=== PATIENT | female | born 1935 | race Caucasian/White ===

== ENCOUNTER 2018-06-14 12:18 | Observation (INO) ==
--- NOTE | 2018-06-14 13:27 | Emergency Department Note ---
Disposition Clinical Impression: UTI (urinary tract infection), Altered mental status Disposition: Admitted As Inpatient Condition: Fair Referrals: Chava Robles DO [Primary Care Provider] - Forms: ED Satisfaction Letter, Work/School Release Time of Disposition: 16:14 (Ramiro BUENO) Altered Mental Status HPI - General Chief Complaint: ED General Medical Stated Complaint: I feel sick Time Seen by Provider: 06/14/18 12:25 Source: patient Mode of arrival: ambulatory Limitations: no limitations Nursing Notes Reviewed: Yes Vital Signs Reviewed: Yes - History of Present Illness HPI Narrative: 82-year-old female who presents emergency room he just doesn't feel well patient states that I really can't describe she has again vomiting diarrhea I hurt all over had an episode of chest pain but denies any off congestion runny nose urgency stinging denies rashes or lesions family is with her states that she's had a little bit of confusion she says not acting herself she appears to have marked amount of weakness is noted times have some confusion where she just isn't sure what to do but she seems to know where she is Day and time he was brought to the ER for evaluation family is concerned she has a UTI she's had this in the past MD complaint: confusion, weakness Onset (ago): day(s) (1) Timing confirmed by: family member Pain Severity: mild Pain Scale: 2 Consistency of Symptoms: waxing and waning Associated symptoms: Reports: fever, loss of appetite, malaise, nausea/vomiting , weakness, other (Diarrhea). Denies: chest pain, cough, diaphoresis, chills, headaches, rash, seizure, shortness of breath, syncope, foul smelling urine, difficulty walking, diarrhea, incontinence - Related Data Home Medications Medication Instructions Recorded Confirmed Amlodipine [Norvasc] 10 mg PO DAILY 10/29/15 06/14/18 Ascorbic Acid [Vitamin C] 250 mg PO DAILY 10/29/15 06/14/18 Atenolol [Tenormin] 100 mg PO DAILY 10/29/15 06/14/18 Atorvastatin Calcium [Lipitor] 80 mg PO DAILY 10/29/15 06/14/18 Diazepam [Valium] 5 mg PO TID PRN 10/29/15 06/14/18 Gabapentin [Neurontin] 300 mg PO TID 10/29/15 06/14/18 Losartan/Hydrochlorothiazide 1 each PO DAILY 10/29/15 06/14/18 [Hyzaar 100-25 Tablet] Omeprazole [PriLOSEC] 20 mg PO DAILY 10/29/15 06/14/18 OxyCODONE/APAP 10/325 [Percocet 0.5 each PO Q6HR PRN 10/29/15 06/14/18 10/325] Spironolactone [Aldactone] 50 mg PO DAILY 10/29/15 06/14/18 Furosemide [Lasix] 20 mg PO DAILY PRN 04/20/18 06/14/18 Allergies Allergy/AdvReac Type Severity Reaction Status Date / Time duloxetine [From Cymbalta] AdvReac Confusion Verified 06/14/18 12:18 escitalopram [From Lexapro] AdvReac Hallucinati Verified 06/14/18 12:18 ng sertraline [From Zoloft] AdvReac Confusion Verified 06/14/18 12:18 All systems ED: reviewed and negative except as stated. Review of Systems: As Per HPI Constitutional: Reports: fever, weakness. Denies: chills, weight change Eyes: Denies: eye pain, eye discharge, vision change ENT ED: Denies: ear pain, throat pain, dental pain Cardiovascular: Denies: chest pain, palpitations Respiratory: Denies: cough, dyspnea, wheezes Gastrointestinal: Denies: abdominal pain, nausea, vomiting Genitourinary: Denies: urgency, dysuria, frequency Musculoskeletal: Denies: back pain Integumentary: Denies: rash, abrasion Neurological: Denies: headache, weakness Psychiatric: Denies: anxiety, depression Endocrine: Denies: fatigue, heat or cold intolerance Hematological/Lymphatic: Denies: easy bleeding Allergic/Immunologic: Denies: facial swelling Past Medical History - Past Medical History Attestation: Yes The following information was validated with the patient. Source: patient, old records reviewed, nursing notes reviewed Medical history: Reports: arthritis, diabetes, hyperlipidemia, hypertension, TIA , other Surgical history: Reports: cholecystectomy, hysterectomy, knee replacement Psychiatric history: Reports: anxiety, depression PHARMACY TECHNICIAN history: Reports: no PHARMACY TECHNICIAN history - Social History Smoking Status: Never smoker Smokeless Tobacco Status: No Alcohol use: Reports: none Drug use: Reports: none Physical Exam - General Limitations: no limitations General appearance: alert, in no apparent distress, other (Frail elderly female) - Head Head exam: atraumatic, normocephalic, normal inspection - Eye Eye exam: Present: normal appearance, PERRL, EOMI - ENT ENT exam: normal exam, normal oropharynx, mucous membranes moist, TM's normal bilaterally, normal external ear exam - Neck Neck exam: Present: normal inspection, full ROM, trachea midline - Chest Chest inspection: Present: normal inspection, symmetric chest wall rise - Respiratory Respiratory exam: Present: normal lung sounds bilaterally - Cardiovascular Cardiovascular exam: Present: regular rate, normal rhythm, normal heart sounds - Abdominal Exam Abdominal exam: Present: soft, Non-Tender, normal bowel sounds. Absent: mass, pulsatile mass - Extremities Exam Extremities exam: Present: normal inspection, full ROM, normal capillary refill. Absent: tenderness, pedal edema, joint swelling, calf tenderness - Expanded Upper Extremity Exam Shoulder exam: Present: normal inspection, full ROM Arm exam: Present: normal inspection, full ROM Elbow exam: Present: normal inspection, full ROM Forearm/Wrist exam: Present: normal inspection, full ROM Hand exam: Present: normal inspection, full ROM Vascular exam: Normal: capillary refill, radial pulse - Expanded Lower Extremity Exam Hip/Pelvis exam: Present: normal inspection, full ROM Upper leg exam: Present: normal inspection, full ROM Knee exam: Present: normal inspection, full ROM Lower leg exam: Present: normal inspection, full ROM Ankle exam: Present: normal inspection, full ROM Foot/toe exam: Present: normal inspection, full ROM Neurovascular/Tendon exam: Present: normal capillary refill, normal fine/light touch. Absent: motor deficit, sensory deficit, tendon deficit Gait: observed and normal - Back Exam Back exam: Present: normal inspection, full ROM. Absent: muscle spasm - Neurological Exam Neurological exam: Present: alert, oriented X3, CN II-XII intact, normal gait - Psychiatric Psychiatric exam: Present: normal affect, normal mood - Skin Skin exam: Present: warm, dry, intact, normal color Course Course Narrative: she was seen and examined is related was done it was noted that she has troponin 0.05 patient though has had gastroenteritis-type symptoms will have serial enzymes done we'll start her on antibiotics and admitted for observation transferred to [facility] her EKG at this time did not show any evidence of an acute CT to Dr. Rubio and he agreed Vital Signs Temperature 98.3 F 06/14/18 12:21 Pulse Rate 101 06/14/18 12:21 Respiratory Rate 18 06/14/18 12:21 Blood Pressure 141/79 06/14/18 12:21 O2 Sat by Pulse Oximetry 92 06/14/18 12:21 Temperature 98.3 F 06/14/18 12:21 Pulse Rate 91 06/14/18 14:50 Respiratory Rate 18 06/14/18 14:50 Blood Pressure 171/89 06/14/18 14:50 O2 Sat by Pulse Oximetry 99 06/14/18 14:50 Oxygen Delivery Oxygen Delivery Room Air Altered Mental Status - Differential Diagnosis Likely: altered mental status, sepsis - Medical Records Medical records reviewed: Yes I reviewed the patient's medical records. - Lab Data Lab results reviewed: Yes I reviewed the patient's lab results. Result diagrams: 06/14/18 13:35 06/14/18 13:35 Lab Results 06/14/18 06/14/18 06/14/18 Range/Units 13:35 13:35 13:35 WBC 6.2 (4.3-11.1) K/mcL RBC 3.36 L (3.82-4.97) M/mcL Hgb 11.0 L (11.5-15.4) g/dL Hct 34.6 L (35.3-44.9) % MCV 103.0 H (83.0-100.0) fL MCH 32.7 (28.0-33.3) pg MCHC 31.8 (31.6-35.5) g/dL RDW 13.0 (11.5-14.5) % Plt Count 180 (140-400) K/mcL MPV 10.3 (9.4-12.4) fL Immature Gran % 0.5 (0-4) % Seg Neutrophils % 77.4 % Lymphocytes % 13.3 % Monocytes % 8.3 % Eosinophils % 0.2 % Basophils % 0.3 % Neutrophils # 4.8 (1.6-8.9) K/mcL Lymphocytes # 0.8 (0.6-4.6) K/mcL Monocytes # 0.5 (0.0-1.3) K/mcL Eosinophils # 0.0 (0.0-0.6) K/mcL Basophils # 0.0 (0.0-0.2) K/mcL PT 10.9 (9.4-12.1) Seconds INR 1.0 APTT 30.9 (26.0-36.0) Seconds Sodium 140 (136-145) mEq/L Potassium 4.9 (3.5-5.1) mEq/L Chloride 106 (98-107) mEq/L Carbon Dioxide 26 (23-29) mEq/L BUN 40 H (8-23) mg/dL Creatinine 1.31 H (0.60-1.20) mg/dL Est GFR ( Amer) 47 L (> 60) Est GFR (Non-Af Amer) 39 L (> 60) BUN/Creatinine Ratio 31 H (6-26) Glucose 109 H (70-105) mg/dL Calculated Osmolality 300 (280-300) Calcium 9.8 (8.6-10.3) mg/dL Total Bilirubin 0.6 (0.3-1.0) mg/dL AST 14 (13-39) Units/L ALT 11 (7-52) Units/L Alkaline Phosphatase 51 (34-104) Units/L Troponin I < 0.03 (< 0.04) ng/mL Serum Total Protein 6.8 (6.4-8.9) g/dL Albumin 3.6 (3.5-5.7) g/dL Globulin 3.2 (2.4-3.5) g/dL Albumin/Globulin Ratio 1.1 (1.1-2.2) TSH 0.285 L (0.340-5.600) mcIU/mL Urine Color (Yellow) Urine Clarity (Clear) Urine pH (5.0-8.0) pH Units Ur Specific [place] (1.010-1.025) Urine Protein (Neg-Trace) mg/dL Urine Glucose (UA) (Normal) mg/dL Urine Ketones (Negative) mg/dL Urine Blood (Negative) Urine Nitrite (Negative) Urine Bilirubin (Negative) Urine Urobilinogen (Normal) mg/dL Ur Leukocyte Esterase (Negative) Urine Microscopic RBC (0-3) per hpf Urine Microscopic WBC (0-3) per hpf Ur Squamous Epith Cells (None-Few) per lpf Urine Bacteria (None-Few) per hpf Ur Culture Indicated? (NO) 06/14/18 Range/Units 15:06 WBC (4.3-11.1) K/mcL RBC (3.82-4.97) M/mcL Hgb (11.5-15.4) g/dL Hct (35.3-44.9) % MCV (83.0-100.0) fL MCH (28.0-33.3) pg MCHC (31.6-35.5) g/dL RDW (11.5-14.5) % Plt Count (140-400) K/mcL MPV (9.4-12.4) fL Immature Gran % (0-4) % Seg Neutrophils % % Lymphocytes % % Monocytes % % Eosinophils % % Basophils % % Neutrophils # (1.6-8.9) K/mcL Lymphocytes # (0.6-4.6) K/mcL Monocytes # (0.0-1.3) K/mcL Eosinophils # (0.0-0.6) K/mcL Basophils # (0.0-0.2) K/mcL PT (9.4-12.1) Seconds INR APTT (26.0-36.0) Seconds Sodium (136-145) mEq/L Potassium (3.5-5.1) mEq/L Chloride (98-107) mEq/L Carbon Dioxide (23-29) mEq/L BUN (8-23) mg/dL Creatinine (0.60-1.20) mg/dL Est GFR ( Amer) (> 60) Est GFR (Non-Af Amer) (> 60) BUN/Creatinine Ratio (6-26) Glucose (70-105) mg/dL Calculated Osmolality (280-300) Calcium (8.6-10.3) mg/dL Total Bilirubin (0.3-1.0) mg/dL AST (13-39) Units/L ALT (7-52) Units/L Alkaline Phosphatase (34-104) Units/L Troponin I (< 0.04) ng/mL Serum Total Protein (6.4-8.9) g/dL Albumin (3.5-5.7) g/dL Globulin (2.4-3.5) g/dL Albumin/Globulin Ratio (1.1-2.2) TSH (0.340-5.600) mcIU/mL Urine Color Yellow (Yellow) Urine Clarity Clear (Clear) Urine pH 5.5 (5.0-8.0) pH Units Ur Specific [place] 1.010 (1.010-1.025) Urine Protein Negative (Neg-Trace) mg/dL Urine Glucose (UA) Normal (Normal) mg/dL Urine Ketones Negative (Negative) mg/dL Urine Blood Negative (Negative) Urine Nitrite Negative (Negative) Urine Bilirubin Negative (Negative) Urine Urobilinogen Normal (Normal) mg/dL Ur Leukocyte Esterase Moderate H (Negative) Urine Microscopic RBC 3-5 H (0-3) per hpf Urine Microscopic WBC 5-15 H (0-3) per hpf Ur Squamous Epith Cells Few (None-Few) per lpf Urine Bacteria Moderate H (None-Few) per hpf Ur Culture Indicated? YES A (NO) - Radiology Data Radiology results reviewed: Yes I reviewed the patient's radiology results. ITS Impressions Chest X-Ray 06/14/18 13:02 IMPRESSION: 1. No active pulmonary disease. 2. Stable cardiomegaly without overt failure. D/ / Fox Chao MD / Fox Chao MD Interpreting Provider: Fox Chao MD - EKG Data EKG attestation: Yes I reviewed and interpreted this EKG. EKG results narrative: Supraventricular rhythm intradural hypertrophy and ST changes nonspecific TPA Checklist - LKW: 3-4.5 hrs Add. Warnings/Precautions Patient/family understanding: The patient/family members have been counseled and understood the risk, benefit , and alternatives of treatment. Critical Care Time Critical Care Time: No
[2018-06-14 13:41] LABS: Basophils % 0.3 %; Eosinophils % 0.2 %; Hematocrit 34.6 % (35.3-44.9); Immature Granulocytes % 0.5 % (0-4); Lymphocytes # 0.8 K/mcL (0.6-4.6); Lymphocytes % 13.3 %; Mean Corpuscular HGB Conc 31.8 g/dL (31.6-35.5); Mean Corpuscular Hemoglobin 32.7 pg (28.0-33.3); Mean Platelet Volume 10.3 fL (9.4-12.4); Monocytes # 0.5 K/mcL (0.0-1.3); Monocytes % 8.3 %; Neutrophils # 4.8 K/mcL (1.6-8.9); Platelet Count 180 K/mcL (140-400); Red Blood Count 3.36 M/mcL (3.82-4.97); Segmented Neutrophils % 77.4 %
[2018-06-14 13:54] LABS: Prothrombin Time 10.9 Seconds (9.4-12.1)
[2018-06-14 13:56] LABS: Activated Partial Thrombo Time 30.9 Seconds (26.0-36.0)
[2018-06-14 14:04] LABS: Alanine Aminotransferase 11 Units/L (7-52); Albumin 3.6 g/dL (3.5-5.7); Albumin/Globulin Ratio 1.1 (1.1-2.2); Alkaline Phosphatase 51 Units/L (34-104); Aspartate Amino Transferase 14 Units/L (13-39); BUN/Creatinine Ratio 31 (6-26); Bilirubin,Total 0.6 mg/dL (0.3-1.0); Blood Urea Nitrogen 40 mg/dL (8-23); Calcium 9.8 mg/dL (8.6-10.3); Carbon Dioxide 26 mEq/L (23-29); Chloride 106 mEq/L (98-107); Globulin 3.2 g/dL (2.4-3.5); Glucose 109 mg/dL (70-105); Osmolality,Calculated 300 (280-300); Potassium 4.9 mEq/L (3.5-5.1); Sodium 140 mEq/L (136-145); Total Protein 6.8 g/dL (6.4-8.9); eGFR For African Americans 47 (> 60); eGFR For Non-African Americans 39 (> 60)
[2018-06-14 14:05] LABS: Troponin I < 0.03 ng/mL (< 0.04)
[2018-06-14 14:18] LABS: Thyroid Stimulating Hormone 0.285 mcIU/mL (0.340-5.600)
[2018-06-14 15:10] LABS: Bilirubin,Urine Negative (Negative); Blood,Urine Negative (Negative); Clarity,Urine Clear (Clear); Color,Urine Yellow (Yellow); Glucose,Urine (UA) Normal (Normal); Ketones,Urine Negative (Negative); Leukocyte Esterase,Urine Moderate (Negative); Nitrite,Urine Negative (Negative); PH,Urine 5.5 pH Units (5.0-8.0); Protein,Urine Negative (Neg-Trace); Urobilinogen,Urine Normal (Normal)
[2018-06-14 15:16] LABS: Squamous Epithelial Cell,Urine Few per lpf (None-Few)
[2018-06-14 15:17] LABS: Bacteria,Urine Moderate per hpf (None-Few)
[2018-06-14] MEDS ORDERED: diazePAM 5 MG TABLET PO PRN (16:53)
[2018-06-14] MEDS ORDERED: *HR* OxyCODONE/APAP 10/325 TABLET PO PRN (16:53)
[2018-06-14] MEDS ORDERED: Naloxone 0.4 MG/ML INJ IVP PRN (16:53)
[2018-06-14] MEDS ORDERED: Furosemide 20 MG TABLET PO PRN (16:53)
[2018-06-14] MEDS: 0.9 % Sodium Chloride 1,000 ML IVC SCH (17:57)
[2018-06-14] MEDS: Gabapentin 300 MG CAPSULE PO SCH (20:57)
[2018-06-15 01:11] LABS: Hematocrit 32.2 % (35.3-44.9); Hemoglobin 10.1 g/dL (11.5-15.4); Mean Corpuscular HGB Conc 31.4 g/dL (31.6-35.5); Mean Corpuscular Hemoglobin 32.4 pg (28.0-33.3); Mean Corpuscular Volume 103.2 fL (83.0-100.0); Mean Platelet Volume 10.5 fL (9.4-12.4); Platelet Count 171 K/mcL (140-400); Red Blood Count 3.12 M/mcL (3.82-4.97); Red Cell Distribution Width 13.1 % (11.5-14.5); Segmented Neutrophils % 56.9 %
[2018-06-15 01:12] LABS: Basophils % 0.8 %; Eosinophils # 0.1 K/mcL (0.0-0.6); Immature Granulocytes % 0.4 % (0-4); Lymphocytes # 1.6 K/mcL (0.6-4.6); Lymphocytes % 30.5 %; Monocytes # 0.5 K/mcL (0.0-1.3); Monocytes % 10.4 %
[2018-06-15 01:23] LABS: Activated Partial Thrombo Time 28.9 Seconds (26.0-36.0)
[2018-06-15] MEDS: 0.9 % Sodium Chloride 1,000 ML IVC SCH (01:41)
[2018-06-15 01:51] LABS: Calcium 9.1 mg/dL (8.6-10.3); Potassium 4.1 mEq/L (3.5-5.1)
[2018-06-15] MEDS: Gabapentin 300 MG CAPSULE PO SCH ×2 (08:35→16:04)
[2018-06-15] MEDS ORDERED: Spironolactone 25 MG TABLET PO SCH (09:00)
[2018-06-15] MEDS ORDERED: amLODIPine 5 MG TABLET PO SCH (09:00)
[2018-06-15] MEDS ORDERED: Ascorbic Acid 500 MG TABLET PO SCH (09:00)
[2018-06-15] MEDS ORDERED: Losartan/HCTZ 50-12.5 TABLET PO SCH (09:00)
[2018-06-15 14:14] LABS: Bilirubin,Urine Negative (Negative); Blood,Urine Negative (Negative); Clarity,Urine Clear (Clear); Color,Urine Yellow (Yellow); Glucose,Urine (UA) Normal (Normal); Ketones,Urine Negative (Negative); Leukocyte Esterase,Urine Negative (Negative); Nitrite,Urine Negative (Negative); PH,Urine 5.5 pH Units (5.0-8.0); Protein,Urine Negative (Neg-Trace); Urobilinogen,Urine Normal (Normal)
[2018-06-15 15:39] VITALS: BP 113/55
--- NOTE | 2018-06-15 15:55 | Internal Med History&Physical ---
Date of Encounter: 06/15/18 Time of Encounter: 15:45 Assessment and Plan (1) Altered mental status Current visit: Yes Status: Acute Patient was confused when she first came in and now she is alert and oriented 3 , Qualifiers: Altered mental status type: unspecified Qualified Code(s): R41.82 - Altered mental status, unspecified (2) UTI (urinary tract infection) Current visit: Yes Status: Acute Patient denies any pain with urination she was given 1 g of Rocephin and her UA follow-up came back normal Qualifiers: Urinary tract infection type: site unspecified Hematuria presence: without hematuria Qualified Code(s): N39.0 - Urinary tract infection, site not specified (3) EDDIE (acute kidney injury) Current visit: Yes Status: Acute Creatinine was elevated but improved after IV fluids (4) Left sided sciatica Current visit: Yes Status: Chronic Reported stable on the Neurontin as a controller medicine management discussion about controlled medicines (5) MAIDA (generalized anxiety disorder) Current visit: Yes Status: Chronic (6) DM type 2 (diabetes mellitus, type 2) Current visit: Yes Status: Chronic Continue proper diet Qualifiers: Diabetes mellitus terminal operator insulin use: unspecified care home insulin use status Diabetes mellitus complication status: with unspecified complications Qualified Code(s): E11.8 - Type 2 diabetes mellitus with unspecified complications (7) Hyperlipidemia Current visit: Yes Status: Chronic Proper diet and atorvastatin Qualifiers: Hyperlipidemia type: mixed hyperlipidemia Qualified Code(s): E78.2 - Mixed hyperlipidemia (8) GERD (gastroesophageal reflux disease) Current visit: Yes Status: Chronic Continue omeprazole Qualifiers: Esophagitis presence: without esophagitis Qualified Code(s): K21.9 - Gastro -esophageal reflux disease without esophagitis (9) Chronic lower back pain Current visit: Yes Status: Chronic Continue her Percocet as before follow-up with Dr. Robles and Dr. Oconnor Qualifiers: Back pain laterality: midline Sciatica presence: with sciatica Sciatica laterality: sciatica of left side Qualified Code(s): M54.42 - Lumbago with sciatica, left side; G89.29 - Other chronic pain Internal Medicine - H&P: HPI Chief complaint: Shortness of breath Admitted From: Home Plans for Post Hospital Care: Home History of present illness: Ms. Chaidez is a 82 year old female presents to emergency room not feeling well, having shortness breath, diarrhea without blood, chest discomfort. Dr. Elina Benitez admitted her with a urinary tract infection and change in mental status. He was given 1 dose of IV Rocephin for a urinalysis that she was positive for leukocyte esterase. Repeat UA today is negative so the Rocephin cleared the urinary tract infection. She had acute kidney injury with her creatinine 1.30 and after the IV fluids cramping came down 1.10. She reports feeling back to her baseline and felt able to go home. She is a walker at home. She reports having children living in the area he could stay with her or she could sit the house. She mentioned wanting to switch to me from Dr. Robles because she initially 1 follow-up with me but a son suggested Dr. Robles. as a hospitalist I need to send her back to her primary care provider. In the future if she decides to switch she can call my office about new patient visit. She mentioned about having lower back pain was not is on narcotics is wondering if I could continue those. I told her it depends on what I find when I research her situation and with Dr. Oconnor said. So I cannot guarantee that I can give it to her. She reports feeling back to normal no chest pain or shortness of breath feels stable enough with her walker. 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 When used routiely, it interferes with deep sleep, so the reserve energy isn't being replaced effectively which leads to tiredness, depression, higher risk of infection. I recommend patients gives up daily use.) Occupational status: retired Current living situation: Home - Independent Activity Level: Uses cane/walker - Family History Mother Living Status: (Cancer unsure what kind) Hx Family Cancer: Yes Hx Family Endocrine Disorder: Yes (DIABETES) Father Living Status: (Diabetic coma) Hx Family Endocrine Disorder: Yes (DIABETES) Internal Medicine - H&P: Meds Amlodipine [Norvasc] 10 mg PO DAILY 10/29/15 [History] Ascorbic Acid [Vitamin C] 250 mg PO DAILY 10/29/15 [History] Atenolol [Tenormin] 100 mg PO DAILY 10/29/15 [History] Atorvastatin Calcium [Lipitor] 80 mg PO DAILY 10/29/15 [History] Diazepam [Valium] 5 mg PO TID PRN 10/29/15 [History] Gabapentin [Neurontin] 300 mg PO TID 10/29/15 [History] Losartan/Hydrochlorothiazide [Hyzaar 100-25 Tablet] 1 each PO DAILY 10/29/15 [ History] Omeprazole [PriLOSEC] 20 mg PO DAILY 10/29/15 [History] OxyCODONE/APAP 10/325 [Percocet 10/325] 0.5 each PO Q6HR PRN 10/29/15 [History] Spironolactone [Aldactone] 50 mg PO DAILY 10/29/15 [History] Furosemide [Lasix] 20 mg PO DAILY PRN 04/20/18 [History] 3 Allergy/AdvReac Type Severity Reaction Status Date / Time duloxetine [From Cymbalta] AdvReac Confusion Verified 06/14/18 12:18 escitalopram [From Lexapro] AdvReac Hallucinati Verified 06/14/18 12:18 ng sertraline [From Zoloft] AdvReac Confusion Verified 06/14/18 12:18 All Systems PM: A 10-system review of systems was performed and is negative for pertinent findings except as documented above in the HPI. - Constitutional Vitals: Temp Pulse Resp BP Pulse Ox 98 F 64 15 113/55 97 06/15/18 15:00 06/15/18 15:00 06/15/18 15:00 06/15/18 15:00 06/15/18 15:00 General appearance: Present: A&O X 3, no acute distress, answers questions appropriately (Hard of hearing) - Head Head exam: Present: atraumatic, normocephalic - Eye Eye exam: Present: PERRL, conjuntiva pink, sclera anicteric Pupils: Present: PERRL - Neck Neck exam general surgery: Present: supple, trachea midline. Absent: lymphadenopathy - Respiratory Respiratory exam: Present: CTAB. Absent: accessory muscle use, rales, rhonchi, wheezes - Cardiovascular Cardiovascular exam: Present: RRR, +S1, +S2. Absent: diastolic murmur, gallop, rubs, systolic murmur - GI/Abdominal GI/Abdominal exam: Present: normal bowel sounds, soft, no peritoneal signs. Absent: distended, tenderness - Extremities Exam Extremities exam: Present: warm. Absent: calf tenderness, cyanotic, pedal edema - Neurological Exam Neurological exam: Present: CN II-XII intact, oriented X3, no focal deficits. Absent: facial droop, speech deficit - Skin Skin exam: Present: dry, intact Internal Med - H&P Results - Labs CBC & Chem 7: 06/15/18 00:52 06/15/18 00:52 Labs: Short CBC 06/15/18 Range/Units 00:52 WBC 5.2 (4.3-11.1) K/mcL Hgb 10.1 L (11.5-15.4) g/dL Hct 32.2 L (35.3-44.9) % Plt Count 171 (140-400) K/mcL Neutrophils # 3.0 (1.6-8.9) K/mcL BMP 06/15/18 00:52 Sodium 142 Potassium 4.1 Chloride 109 H Carbon Dioxide 26 BUN 35 H Creatinine 1.10 Glucose 77 Calcium 9.1 Cardiac Enzymes 06/14/18 06/15/18 Range/Units 18:32 00:52 Troponin I < 0.03 0.03 (< 0.04) ng/mL Urine 06/15/18 Range/Units 14:05 Urine Color Yellow (Yellow) Urine Clarity Clear (Clear) Urine pH 5.5 (5.0-8.0) pH Units Ur Specific [place] 1.020 (1.010-1.025) Urine Protein Negative (Neg-Trace) mg/dL Urine Glucose (UA) Normal (Normal) mg/dL
--- NOTE | 2018-06-15 16:19 | Discharge Summary ---
- NOTES TO OUTPATIENT PROVIDER Notes to Outpatient Provider: Yanelis asked about switching to me. As a hospitalist, referred her back here for follow-up. 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 (5) MAIDA (generalized anxiety disorder) Priority: Secondary Status: Chronic Comments: Stable (6) DM type 2 (diabetes mellitus, type 2) Priority: Secondary Status: Chronic Comments: Stable Qualifiers: Diabetes mellitus manager intermediate insulin use: unspecified manager intermediate insulin use status Diabetes mellitus complication status: with unspecified complications Qualified Code(s): E11.8 - Type 2 diabetes mellitus with unspecified complications (7) Hyperlipidemia Priority: Secondary Status: Chronic Comments: Stable Qualifiers: Hyperlipidemia type: mixed hyperlipidemia Qualified Code(s): E78.2 - Mixed hyperlipidemia (8) GERD (gastroesophageal reflux disease) Priority: Secondary Status: Chronic Comments: Stable Qualifiers: Esophagitis presence: without esophagitis Qualified Code(s): K21.9 - Gastro -esophageal reflux disease without esophagitis (9) Chronic lower back pain Priority: Secondary Status: Chronic Comments: Stable Qualifiers: Back pain laterality: midline Sciatica presence: with sciatica Sciatica laterality: sciatica of left side Qualified Code(s): M54.42 - Lumbago with sciatica, left side; G89.29 - Other chronic pain Hospital course: Ms. Chaidez is a 82 year old female was admitted to the hospital with changes no status from urinary tract infection. She had acute kidney injury in addition that improved with IV fluids. Mental status improved after Rocephin shot helped urinary tract infection. A repeat UA came back normal she felt back to baseline and ready to go home. She denies any chest pain or shortness of breath or other concerns. He felt that she had family members available to stay with her or she can state her house. She does not feel like she needed home health. Answer questions needs follow-up with Dr. Robles. Discharge discussed with: patient - Time Spent with Patient Total time spent providing and/or coordinating discharge services: Greater than 30 minutes - Discharge Medications Home Medications: Amlodipine [Norvasc] 10 mg PO DAILY 10/29/15 [History] Ascorbic Acid [Vitamin C] 250 mg PO DAILY 10/29/15 [History] Atenolol [Tenormin] 100 mg PO DAILY 10/29/15 [History] Atorvastatin Calcium [Lipitor] 80 mg PO DAILY 10/29/15 [History] Diazepam [Valium] 5 mg PO TID PRN 10/29/15 [History] Gabapentin [Neurontin] 300 mg PO TID 10/29/15 [History] Losartan/Hydrochlorothiazide [Hyzaar 100-25 Tablet] 1 each PO DAILY 10/29/15 [ History] Omeprazole [PriLOSEC] 20 mg PO DAILY 10/29/15 [History] OxyCODONE/APAP 10/325 [Percocet 10/325] 0.5 each PO Q6HR PRN 10/29/15 [History] Spironolactone [Aldactone] 50 mg PO DAILY 10/29/15 [History] Furosemide [Lasix] 20 mg PO DAILY PRN 04/20/18 [History] Allergies/Adverse Reactions: 3 Allergy/AdvReac Type Severity Reaction Status Date / Time duloxetine [From Cymbalta] AdvReac Confusion Verified 06/14/18 12:18 escitalopram [From Lexapro] AdvReac Hallucinati Verified 06/14/18 12:18 ng sertraline [From Zoloft] AdvReac Confusion Verified 06/14/18 12:18 Date of admission: 06/14/18 16:21 Primary care physician: Chava Robles, DO Discharging clinician: Krzysztof Rubio Anticipated date of discharge: 06/15/18 - Constitutional Vitals: Temp Pulse Resp BP Pulse Ox 98 F 64 15 113/55 97 06/15/18 15:00 06/15/18 15:00 06/15/18 15:00 06/15/18 15:00 06/15/18 15:00 General appearance: Present: A&O X 3, no acute distress, answers questions appropriately (Hard of hearing) Exam: General: Alert and oriented, no acute distress Lungs: Clear to auscultation bilaterally without wheezing or crackles Heart: Regular rate and rythms without murmer or rubs Abdomen: Soft, nontender, Extremities: no edema, redness - Patient Status Disposition: Home, Self-Care Condition: Fair Functional capacity at discharge: uses cane/walker Overall status at discharge: patient is back to baseline - Discharge Instructions Follow Up With: Chava Robles DO [Primary Care Provider] - 1 week - Diet and Activity Activity: ambulate only with your walker, increase activity as tolerated Diet: diabetic diet
--- NOTE | 2018-06-17 18:01 | Electrocardiograph Report ---
[address] [address] Test Date: 2018-06-14 Pat Name: Yanelis Chaidez Department: [id number] Room: [facility] Gender: F Layer Off: Enrique : 1935 Requested By: Elina Benitez Order Number: [id number] Reading MD: Rosalina Madrigal Measurements Intervals [place] Rate: 87 P: CT: 0 QRS: 66 QRSD: 106 T: 115 QT: 348 QTc: 393 Interpretive Statements SUPRAVENTRICULAR RHYTHM LEFT VENTRICULAR HYPERTROPHY AND ST-T CHANGE Electronically Signed On 06-17-2018 17:59:04 EDT by Rosalina Madrigal
== END 2018-06-15 16:56 | disposition home or self-care (01) ==
LOC: INPPIK 12:18 → EMEROOPIK 12:18 → INPPIK 17:04
PROVIDERS: ADMIT Family Medicine; ATTEND Family Medicine

== ENCOUNTER 2018-10-30 14:23 | Inpatient (IN) ==
--- NOTE | 2018-10-30 14:49 | Emergency Department Note ---
Disposition Clinical Impression: Nausea & vomiting, Peripheral edema, Elevated troponin Disposition: Admitted As Inpatient Condition: Good Forms: ED Satisfaction Letter, Work/School Release Time of Disposition: 16:00 General Adult HPI - General Chief complaint: ED General Medical Stated complaint: Swelling in lower extremities Time Seen by Provider: 10/30/18 14:30 Source: patient Mode of arrival: ambulatory Limitations: no limitations, other Nursing Notes Reviewed: Yes Vital Signs Reviewed: Yes - History of Present Illness HPI Narrative: Patient has daughter says she has felt sick for the past week has some swelling in her legs has been throwing up last couple of days off and on with abdominal cramping. There has been no fever that they are aware of . There has been no chest pain shortness of breath no diarrhea rashes or other concerns. Onset (ago): day(s) (several) Location: abdomen Radiation: non-radiation Pain Severity: moderate Pain Scale: 8 Quality: other (Cramping) Consistency: intermittent Improves with: nothing Worsens with: nothing Associated symptoms: Reports: denies other symptoms Treatments Prior to Arrival: none - Related Data Home Medications Medication Instructions Recorded Confirmed Amlodipine [Norvasc] 10 mg PO DAILY 10/29/15 10/30/18 Ascorbic Acid [Vitamin C] 250 mg PO DAILY 10/29/15 10/30/18 Atenolol [Tenormin] 100 mg PO DAILY 10/29/15 10/30/18 Atorvastatin Calcium [Lipitor] 80 mg PO DAILY 10/29/15 10/30/18 Diazepam [Valium] 5 mg PO TID PRN 10/29/15 10/30/18 Gabapentin [Neurontin] 300 mg PO TID 10/29/15 10/30/18 Losartan/Hydrochlorothiazide 1 each PO DAILY 10/29/15 10/30/18 [Hyzaar 100-25 Tablet] Omeprazole [PriLOSEC] 20 mg PO DAILY 10/29/15 10/30/18 OxyCODONE/APAP 10/325 [Percocet 0.5 each PO Q6HR PRN 10/29/15 10/30/18 10/325] Spironolactone [Aldactone] 50 mg PO DAILY 10/29/15 10/30/18 Furosemide [Lasix] 20 mg PO DAILY PRN 04/20/18 10/30/18 Allergies Allergy/AdvReac Type Severity Reaction Status Date / Time duloxetine [From Cymbalta] AdvReac Confusion Verified 10/30/18 14:23 escitalopram [From Lexapro] AdvReac Hallucinati Verified 10/30/18 14:23 ng sertraline [From Zoloft] AdvReac Confusion Verified 10/30/18 14:23 All systems ED: reviewed and negative except as stated. Review of Systems: As Per HPI Constitutional: Denies: fever, chills, weakness, weight change Eyes: Denies: eye pain, eye discharge, vision change ENT ED: Denies: ear pain, throat pain, dental pain, hearing loss, epistaxis, congestion, dysphagia Cardiovascular: Denies: chest pain, palpitations, dyspnea on exertion, edema, syncope Respiratory: Denies: cough, dyspnea, wheezes, hemoptysis, stridor Gastrointestinal: Reports: as per HPI, abdominal pain, nausea, vomiting Genitourinary: Denies: dysuria, frequency, hematuria, discharge Musculoskeletal: Reports: as per HPI (Lower extremity edema) Integumentary: Denies: rash, abrasion, lesions Neurological: Denies: headache, weakness, numbness, paresthesias, confusion, abnormal gait, vertigo Psychiatric: Denies: anxiety, depression, suicidal thoughts, homicidal thoughts, auditory hallucinations, visual hallucinations Endocrine: Denies: fatigue Hematological/Lymphatic: Denies: easy bleeding, easy bruising Allergic/Immunologic: Denies: facial swelling, urticaria Past Medical History - Past Medical History Attestation: Yes The following information was validated with the patient. Source: patient, nursing notes reviewed Medical history: Reports: arthritis, diabetes, hyperlipidemia, hypertension, TIA, other Surgical history: Reports: cataract (Bilateral), cholecystectomy, hysterectomy, knee replacement (Right), other (Benign tumor removed from scalp and right leg) Psychiatric history: Reports: anxiety, depression NON FERROUS MATERIAL HANDLER history: Reports: no NON FERROUS MATERIAL HANDLER history - Social History Smoking Status: Never smoker Smokeless Tobacco Status: No Alcohol use: Reports: none, occasionally Drug use: Reports: none Physical Exam - General Limitations: no limitations, other General appearance: alert, in no apparent distress - Head Head exam: atraumatic, normocephalic, normal inspection - Eye Eye exam: Present: normal appearance, PERRL, EOMI - ENT ENT exam: normal exam, normal oropharynx, mucous membranes moist - Neck Neck exam: Present: normal inspection, full ROM, trachea midline - Chest Chest inspection: Present: normal inspection, symmetric chest wall rise - Respiratory Respiratory exam: Present: normal lung sounds bilaterally - Cardiovascular Cardiovascular exam: Present: regular rate, normal rhythm, normal heart sounds - Abdominal Exam Abdominal exam: Present: soft, tenderness (mild) - Extremities Exam Extremities exam: Present: pedal edema - Back Exam Back exam: Present: normal inspection, full ROM. Absent: tenderness - Neurological Exam Neurological exam: Present: alert, oriented X3 - Psychiatric Psychiatric exam: Present: normal affect, normal mood - Skin Skin exam: Present: warm, dry, intact, normal color Course Vital Signs Temperature 97.5 F L 10/30/18 14:26 Pulse Rate 105 10/30/18 14:26 Respiratory Rate 24 10/30/18 14:26 Blood Pressure 164/110 10/30/18 14:26 O2 Sat by Pulse Oximetry 92 10/30/18 14:26 Temperature 97.5 F L 10/30/18 14:26 Pulse Rate 89 10/30/18 15:23 Respiratory Rate 16 10/30/18 15:23 Blood Pressure 157/76 10/30/18 15:23 O2 Sat by Pulse Oximetry 94 10/30/18 15:23 Oxygen Delivery Oxygen Delivery Room Air Medical Decision Making - MDM Narrative Medical decision making narrative: I reviewed the patient's medication list. Case was discussed with Dr. Geiger he graciously accepts admission - Lab Data Lab results reviewed: Yes I reviewed the patient's lab results. Result diagrams: 10/30/18 14:56 10/30/18 14:56 Lab Results 10/30/18 10/30/18 10/30/18 Range/Units 14:56 14:56 14:56 WBC 4.8 (4.3-11.1) K/mcL RBC 4.00 (3.82-4.97) M/mcL Hgb 12.9 (11.5-15.4) g/dL Hct 41.3 (35.3-44.9) % MCV 103.3 H (83.0-100.0) fL MCH 32.3 (28.0-33.3) pg MCHC 31.2 L (31.6-35.5) g/dL RDW 13.8 (11.5-14.5) % Plt Count 109 L (140-400) K/mcL MPV 11.5 (9.4-12.4) fL Immature Gran % 0.2 (0-4) % Seg Neutrophils % 66.0 % Lymphocytes % 20.5 % Monocytes % 11.7 % Eosinophils % 0.8 % Basophils % 0.8 % Neutrophils # 3.1 (1.6-8.9) K/mcL Lymphocytes # 1.0 (0.6-4.6) K/mcL Monocytes # 0.6 (0.0-1.3) K/mcL Eosinophils # 0.0 (0.0-0.6) K/mcL Basophils # 0.0 (0.0-0.2) K/mcL Sodium 144 (136-145) mEq/L Potassium 3.7 (3.5-5.1) mEq/L Chloride 105 (98-107) mEq/L Carbon Dioxide 30 H (23-29) mEq/L BUN 35 H (8-23) mg/dL Creatinine 1.24 H (0.60-1.20) mg/dL Est GFR ( Amer) 50 L (> 60) Est GFR (Non-Af Amer) 41 L (> 60) BUN/Creatinine Ratio 28 H (6-26) Glucose 106 H (70-105) mg/dL Calculated Osmolality 306 H (280-300) Lactic Acid 1.9 (0.5-2.2) mmol/L Calcium 9.4 (8.6-10.3) mg/dL Troponin I 0.06 H* (< 0.04) ng/mL Urine Color (Yellow) Urine Clarity (Clear) Urine pH (5.0-8.0) pH Units Ur Specific [place] (1.010-1.025) Urine Protein (Neg-Trace) mg/dL Urine Glucose (UA) (Normal) mg/dL Urine Ketones (Negative) mg/dL Urine Blood (Negative) Urine Nitrite (Negative) Urine Bilirubin (Negative) Urine Urobilinogen (Normal) mg/dL Ur Leukocyte Esterase (Negative) Urine Microscopic WBC (0-3) per hpf Ur Squamous Epith Cells (None-Few) per lpf Ur Renal Epithelial Cell (None-Few) per hpf Urine Bacteria (None-Few) per hpf Ur Culture Indicated? (NO) 10/30/18 Range/Units 15:22 WBC (4.3-11.1) K/mcL RBC (3.82-4.97) M/mcL Hgb (11.5-15.4) g/dL Hct (35.3-44.9) % MCV (83.0-100.0) fL MCH (28.0-33.3) pg MCHC (31.6-35.5) g/dL RDW (11.5-14.5) % Plt Count (140-400) K/mcL MPV (9.4-12.4) fL Immature Gran % (0-4) % Seg Neutrophils % % Lymphocytes % % Monocytes % % Eosinophils % % Basophils % % Neutrophils # (1.6-8.9) K/mcL Lymphocytes # (0.6-4.6) K/mcL Monocytes # (0.0-1.3) K/mcL Eosinophils # (0.0-0.6) K/mcL Basophils # (0.0-0.2) K/mcL Sodium (136-145) mEq/L Potassium (3.5-5.1) mEq/L Chloride (98-107) mEq/L Carbon Dioxide (23-29) mEq/L BUN (8-23) mg/dL Creatinine (0.60-1.20) mg/dL Est GFR ( Amer) (> 60) Est GFR (Non-Af Amer) (> 60) BUN/Creatinine Ratio (6-26) Glucose (70-105) mg/dL Calculated Osmolality (280-300) Lactic Acid (0.5-2.2) mmol/L Calcium (8.6-10.3) mg/dL Troponin I (< 0.04) ng/mL Urine Color Yellow (Yellow) Urine Clarity Slightly Cloudy A (Clear) Urine pH 5.0 (5.0-8.0) pH Units Ur Specific [place] 1.020 (1.010-1.025) Urine Protein 30 H (Neg-Trace) mg/dL Urine Glucose (UA) Normal (Normal) mg/dL Urine Ketones Negative (Negative) mg/dL Urine Blood Negative (Negative) Urine Nitrite Negative (Negative) Urine Bilirubin Negative (Negative) Urine Urobilinogen Normal (Normal) mg/dL Ur Leukocyte Esterase Negative (Negative) Urine Microscopic WBC 3-5 H (0-3) per hpf Ur Squamous Epith Cells Few (None-Few) per lpf Ur Renal Epithelial Cell Few (None-Few) per hpf Urine Bacteria Many H (None-Few) per hpf Ur Culture Indicated? YES A (NO) - Radiology Data Radiology results reviewed: Yes I reviewed the patient's radiology results. - EKG Data EKG #1 EKG attestation: Yes I reviewed and interpreted this EKG. EKG results narrative: EKG shows sinus rhythm with a relative rate of 96 bpm. RI intervals 161 ms QRS duration 104 ms. QT interval 357 ms QTc interval 411 ms R axis C degrees. There is nonspecific T abnormalities no acute ST T-wave or T-wave elevation
[2018-10-30 15:05] LABS: Basophils % 0.8 %; Eosinophils % 0.8 %; Hematocrit 41.3 % (35.3-44.9); Hemoglobin 12.9 g/dL (11.5-15.4); Immature Granulocytes % 0.2 % (0-4); Lymphocytes % 20.5 %; Mean Corpuscular HGB Conc 31.2 g/dL (31.6-35.5); Mean Corpuscular Hemoglobin 32.3 pg (28.0-33.3); Mean Corpuscular Volume 103.3 fL (83.0-100.0); Mean Platelet Volume 11.5 fL (9.4-12.4); Monocytes # 0.6 K/mcL (0.0-1.3); Monocytes % 11.7 %; Neutrophils # 3.1 K/mcL (1.6-8.9); Platelet Count 109 K/mcL (140-400); Red Cell Distribution Width 13.8 % (11.5-14.5)
[2018-10-30 15:27] LABS: Calcium 9.4 mg/dL (8.6-10.3); Potassium 3.7 mEq/L (3.5-5.1); Troponin I 0.06 ng/mL (< 0.04)
[2018-10-30 15:28] LABS: Bilirubin,Urine Negative (Negative); Blood,Urine Negative (Negative); Clarity,Urine Slightly Cloudy (Clear); Color,Urine Yellow (Yellow); Glucose,Urine (UA) Normal (Normal); Ketones,Urine Negative (Negative); Leukocyte Esterase,Urine Negative (Negative); Nitrite,Urine Negative (Negative); Protein,Urine 30 mg/dL (Neg-Trace); Urobilinogen,Urine Normal (Normal)
[2018-10-30 15:36] LABS: Bacteria,Urine Many per hpf (None-Few); Renal Epithelial Cells,Urine Few per hpf (None-Few); Squamous Epithelial Cell,Urine Few per lpf (None-Few)
[2018-10-30] MEDS ORDERED: Aspirin 81 MG TAB.CHEW PO STA (16:07)
[2018-10-30] MEDS ORDERED: diazePAM 5 MG TABLET PO PRN (18:01)
[2018-10-30] MEDS ORDERED: 0.9 % Sodium Chloride w KCl 20 MEQ/1,000 ML MLS IVC SCH (18:01)
[2018-10-30] MEDS ORDERED: Naloxone 0.4 MG/ML INJ IVP PRN (18:01)
[2018-10-30] MEDS ORDERED: Furosemide 40 MG TABLET PO PRN (18:01)
[2018-10-30] MEDS: Gabapentin 300 MG CAPSULE PO SCH (20:54)
[2018-10-31 03:45] LABS: Potassium 3.8 mEq/L (3.5-5.1)
[2018-10-31] MEDS ORDERED: Losartan/HCTZ 50-12.5 TABLET PO SCH (09:00)
[2018-10-31] MEDS ORDERED: Spironolactone 25 MG TABLET PO SCH (09:00)
[2018-10-31] MEDS: amLODIPine 5 MG TABLET PO SCH (09:07)
[2018-10-31] MEDS: Gabapentin 300 MG CAPSULE PO SCH ×2 (09:07→20:19)
[2018-10-31] MEDS: Ascorbic Acid 500 MG TABLET PO SCH (09:08)
[2018-10-31] MEDS: *HR* OxyCODONE/APAP 10/325 TABLET PO PRN (09:28)
[2018-10-31] MEDS ORDERED: ALPRAZolam 0.5 MG TABLET PO PRN (11:12)
[2018-10-31] MEDS ORDERED: Ondansetron 4 MG/2 ML VIAL IVP PRN (11:15)
[2018-10-31] MEDS ORDERED: Potassium Chloride 20 MEQ in D5% in Water 1,000 ML IVC SCH (11:15)
[2018-10-31] MEDS ORDERED: Ondansetron ODT 4 MG TAB.RAPDIS SL PRN (11:15)
--- NOTE | 2018-10-31 11:22 | Internal Med History&Physical ---
Date of Encounter: 10/31/18 Time of Encounter: 10:50 Assessment and Plan (1) CHF exacerbation Current visit: Yes Status: Acute Order echocardiogram to further evaluate. Qualifiers: Heart failure type: unspecified Qualified Code(s): I50.9 - Heart failure, unspecified (2) Elevated troponin Current visit: Yes Status: Acute Suspect troponin leak from demand ischemia. (3) Diabetes mellitus Current visit: No Status: Chronic Check hemoglobin A1c in a.m. Qualifiers: Diabetes mellitus type: type 2 Diabetes mellitus complication status: without complication Qualified Code(s): E11.9 - Type 2 diabetes mellitus without complications (4) Weight loss Current visit: Yes Status: Acute Recheck TSH and do CT of chest (5) Thyroid mass Current visit: Yes Status: Acute Do CT of neck to follow-up on thyroid mass seen February 2016. (6) CKD (chronic kidney disease) stage 3, GFR 30-59 ml/min Current visit: Yes Status: Chronic Hold Aldactone, Lasix, and losartan/HCTZ and monitor renal indices. (7) Macrocytosis Current visit: Yes Status: Acute Check B12, folate, and TSH. (8) Hyperlipidemia Current visit: No Status: Chronic Check lipid profile in a.m. Qualifiers: Hyperlipidemia type: mixed hyperlipidemia Qualified Code(s): E78.2 - Mixed hyperlipidemia (9) Nausea & vomiting Current visit: Yes Status: Chronic Start IV fluids and use Zofran as needed. Qualifiers: Vomiting type: unspecified Vomiting Intractability: unspecified Qualified Code(s): R11.2 - Nausea with vomiting, unspecified (10) HTN (hypertension) Current visit: Yes Status: Chronic Continue Norvasc and Tenormin. Hold Aldactone, lisinopril/HCTZ and Lasix because of azotemia. Qualifiers: Hypertension type: essential hypertension Qualified Code(s): I10 - Essential (primary) hypertension Internal Medicine - H&P: HPI Chief complaint: Edema, vomiting Admitted From: Emergency Dept Plans for Post Hospital Care: Home History of present illness: Ms. Chaidez is a 82 year old female who came to emergency room stating she had edema in her feet onset approximately one week earlier. She denies significant dyspnea or chest pain. When symptoms did not improve she came to emergency room. She was evaluated and was found to have slight elevation of troponin. Chest x-ray showed bilateral pleural effusions. She was admitted to [facility] floor for ongoing care needs. Cardiovascular history is significant for hypertension. She denies MT DVT or pulmonary embolus. Echocardiogram 10/29/2015 showed LVEF of 55-60%. Interventricular septum and posterior wall thickness measurements were 1.20 cm respectively. The E/A ratio was 0.9. She was diagnosed with mild LV diastolic dysfunction. There was mild mitral regurgitation. Estimated RVSP was 36 mmHg. Respiratory history is significant for being a lifelong nonsmoker. She denies chronic lung disease and does not use home oxygen. Past Med Surg Social Fam HX - Past Medical History Medical history: arthritis, diabetes, hyperlipidemia, hypertension, TIA, other Psychiatric history: anxiety, depression - Past Surgical History Surgical History: cataract, cholecystectomy, hysterectomy, knee replacement, other Additional surgical history: Tumors removed from head and leg - Social History Smoking Status: Never smoker Smokeless Tobacco Status: No Alcohol use: none, occasionally Drug use: none - Family History Mother Living Status: Hx Family Cancer: Yes Hx Family Endocrine Disorder: Yes (DIABETES) Father Living Status: Hx Family Endocrine Disorder: Yes (DIABETES) Internal Medicine - H&P: Meds Amlodipine [Norvasc] 10 mg PO DAILY 10/29/15 [History] Ascorbic Acid [Vitamin C] 250 mg PO DAILY 10/29/15 [History] Atenolol [Tenormin] 100 mg PO DAILY 10/29/15 [History] Atorvastatin Calcium [Lipitor] 80 mg PO DAILY 10/29/15 [History] Diazepam [Valium] 5 mg PO TID PRN 10/29/15 [History] Gabapentin [Neurontin] 300 mg PO TID 10/29/15 [History] Losartan/Hydrochlorothiazide [Hyzaar 100-25 Tablet] 1 each PO DAILY 10/29/15 [History] Omeprazole [PriLOSEC] 20 mg PO DAILY 10/29/15 [History] OxyCODONE/APAP 10/325 [Percocet 10/325] 0.5 each PO Q6HR PRN 10/29/15 [History] Spironolactone [Aldactone] 50 mg PO DAILY 10/29/15 [History] Furosemide [Lasix] 20 mg PO DAILY PRN 04/20/18 [History] Allergy/AdvReac Type Severity Reaction Status Date / Time duloxetine [From Cymbalta] AdvReac Confusion Verified 10/30/18 14:23 escitalopram [From Lexapro] AdvReac Hallucinati Verified 10/30/18 14:23 ng sertraline [From Zoloft] AdvReac Confusion Verified 10/30/18 14:23 All Systems PM: A 10-system review of systems was performed and is negative for pertinent findings except as documented above in the HPI. Review of systems: Gen.: Her weight has decreased from 74.2 kg on 10/29/2015 to 67.132 kg on 03/15/2016 to 63.049 kg on admission now. She reports her weight one year ago was approximately 280 pounds but I cannot verify this. Cardiovascular: As per history of present illness Respiratory: As per history of present illness GI: She reports she has had postprandial vomiting for approximately one year on a near daily basis. She reports EGD and colonoscopy were done at [facility] approximately one year ago but I do not see documentation of this on review of old records. She reports cholecystectomy. She denies disorders of her liver or exocrine pancreas : She has chronic kidney disease and follows with a [place] psychometrist. She reports urinary frequency but denies other kidney or bladder disorders. Neurologic: She states she has had "mini strokes". Head CT 02/04/2018 showed no large distribution strokes. She denies seizures. Endocrine: She reports she was diagnosed with DM 2 approximately 2007. Hemoglobin A1c was 4.8% on 12/25/2017. No medication for diabetes is noted in her medication list. She has history of hyperlipidemia. She denies known thyroid disease. A chest CT 03/15/2016 showed a 3.5 x 3.8 similar mass in the right lobe of the thyroid. 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 She had hyperuricemia with uric acid level 8.2 on 04/21/2015. - Constitutional Vitals: Temp Pulse Resp BP Pulse Ox 97.2 F L 63 18 111/60 93 10/31/18 10:26 10/31/18 10:26 10/31/18 10:26 10/31/18 10:26 10/31/18 10:26 Exam: Gen.: She is a well-developed well-nourished female resting comfortably in bed who appears in no acute distress HEENT: Head is atraumatic and normocephalic. Eyes: EOMI. There is no scleral icterus. She has dried mucopurulent drainage in the eyelashes of the left eye Mouth: Mucosa is dry Neck: There is no thyromegaly or adenopathy noted. Heart: Regular with frequent ectopic beats. No murmurs or gallops are heard. Lungs: No wheezes or crackles are heard. Abdomen: Soft and nontender. No masses or guarding are noted. Extremities: She has 2+ edema of the dorsum of the feet and lower anterior shins bilaterally. Dorsalis pedis and posttibial pulses are not palpable. She has significant DJD changes of her hands. Neurologic: Mental status: She is talkative and seems to be a reliable historian. She has spastic dysphonia. Cranial nerves: Smile is symmetric. Forehead wrinkles bilaterally. Tongue protrudes midline. EOMI. Motor: There is no pronator drift. Cerebellar: Finger to nose is intact bilaterally. Skin: Warm and dry Internal Med - H&P Results - Labs CBC & Chem 7: 10/30/18 14:56 10/31/18 03:09 Labs: Short CBC 10/30/18 Range/Units 14:56 WBC 4.8 (4.3-11.1) K/mcL Hgb 12.9 (11.5-15.4) g/dL Hct 41.3 (35.3-44.9) % Plt Count 109 L (140-400) K/mcL Neutrophils # 3.1 (1.6-8.9) K/mcL BMP 10/30/18 10/31/18 14:56 03:09 Sodium 144 142 Potassium 3.7 3.8 Chloride 105 107 Carbon Dioxide 30 H 29 BUN 35 H 34 H Creatinine 1.24 H 1.14 Glucose 106 H 128 H Calcium 9.4 9.0 Cardiac Enzymes 10/30/18 10/30/18 10/31/18 Range/Units 14:56 21:04 03:09 Troponin I 0.06 H* 0.06 H* 0.06 H* (< 0.04) ng/mL 10/31/18 Range/Units 09:23 Troponin I 0.07 H* (< 0.04) ng/mL Urine 10/30/18 Range/Units 15:22 Urine Color Yellow (Yellow) Urine Clarity Slightly Cloudy A (Clear) Urine pH 5.0 (5.0-8.0) pH Units Ur Specific [place] 1.020 (1.010-1.025) Urine Protein 30 H (Neg-Trace) mg/dL Urine Glucose (UA) Normal (Normal) mg/dL - Impressions ITS Impressions Chest X-Ray 10/30/18 14:37 IMPRESSION: Small-moderate volume bilateral effusions, increased since the prior exam. Basilar opacities favored to reflect atelectasis although superimposed aspiration or pneumonia could have a similar appearance in the appropriate context. D/ / Griffin Bartlett / Griffin Bartlett Interpreting Provider: Griffin Bartlett Abdomen/Pelvis CT 10/30/18 14:46 IMPRESSION: 1. Bilateral pleural effusion, right greater than left with associated bibasilar relaxation atelectasis or infiltrate such as pneumonia. 2. No definite CT evidence of an acute intra-abdominal or intrapelvic process. 3. Mild extrahepatic bile duct dilatation status post cholecystectomy typical of reservoir effect. 4. Diverticulosis coli without CT evidence of acute diverticulitis. 5. Calcific atherosclerotic disease aorta. 6. Blood pool density of the heart is lower than that of the myocardium, typical of anemia. D/ / Casey James / Casey James Interpreting Provider: Casey James
--- NOTE | 2018-10-31 13:26 | Electrocardiograph Report ---
[address] [address] Test Date: 2018-10-30 Pat Name: Yanelis Chaidez Department: [id number] Room: 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
[2018-10-31] MEDS: 0.9 % Sodium Chloride w KCl 20 MEQ/1,000 ML MLS IVC SCH (13:45)
--- NOTE | 2018-10-31 14:02 | Electrocardiograph Report ---
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
[2018-11-01] MEDS: *HR* OxyCODONE/APAP 10/325 TABLET PO PRN (06:00)
[2018-11-01 07:02] LABS: Basophils % 0.4 %; Eosinophils % 0.5 %; Hematocrit 37.3 % (35.3-44.9); Hemoglobin 11.4 g/dL (11.5-15.4); Immature Granulocytes % 0.4 % (0-4); Lymphocytes # 1.2 K/mcL (0.6-4.6); Lymphocytes % 13.9 %; Mean Corpuscular HGB Conc 30.6 g/dL (31.6-35.5); Mean Corpuscular Hemoglobin 32.5 pg (28.0-33.3); Mean Corpuscular Volume 106.3 fL (83.0-100.0); Mean Platelet Volume 11.7 fL (9.4-12.4); Monocytes # 0.6 K/mcL (0.0-1.3); Monocytes % 7.4 %; Neutrophils # 6.4 K/mcL (1.6-8.9); Red Blood Count 3.51 M/mcL (3.82-4.97); Red Cell Distribution Width 13.9 % (11.5-14.5); Segmented Neutrophils % 77.4 %
[2018-11-01 07:03] LABS: Platelet Count 94 K/mcL (140-400)
[2018-11-01 07:19] LABS: Chol/HDL Ratio 3.2 (0-4.9); Magnesium 1.7 mg/dL (1.6-2.6); Uric Acid 8.6 mg/dL (2.3-7.6)
[2018-11-01 07:32] LABS: Thyroid Stimulating Hormone 0.138 mcIU/mL (0.340-5.600)
[2018-11-01] MEDS: 0.9 % Sodium Chloride w KCl 20 MEQ/1,000 ML MLS IVC SCH (08:05)
[2018-11-01 08:16] LABS: Bilirubin,Total 0.7 mg/dL (0.3-1.0); Calcium 8.7 mg/dL (8.6-10.3); Potassium 4.8 mEq/L (3.5-5.1)
[2018-11-01] MEDS: amLODIPine 5 MG TABLET PO SCH (09:25)
[2018-11-01] MEDS: Ascorbic Acid 500 MG TABLET PO SCH (09:27)
[2018-11-01] MEDS: Gabapentin 300 MG CAPSULE PO SCH ×2 (09:28→20:00)
--- NOTE | 2018-11-01 09:52 | Internal Med Progress Note ---
Date of Encounter: 11/01/18 Time of Encounter: 09:45 - Assessment and plan (1) CHF exacerbation Current Visit: Yes Status: Acute Assessment and plan: November 01. Echocardiogram ordered Qualifiers: Heart failure type: unspecified Qualified Code(s): I50.9 - Heart failure, unspecified (2) Elevated troponin Current Visit: Yes Status: Acute Assessment and plan: November 01. Suspect troponin leak from demand ischemia. (3) Diabetes mellitus Current Visit: No Status: Chronic Assessment and plan: November 01. Hemoglobin A1c pending Qualifiers: Diabetes mellitus type: type 2 Diabetes mellitus complication status: without complication Qualified Code(s): E11.9 - Type 2 diabetes mellitus without complications (4) Weight loss Current Visit: Yes Status: Acute Assessment and plan: November 01. Chest CT showed bilateral effusions with mediastinal lymphadenopathy unchanged since 2014. TSH was suppressed at 0.138. (5) Thyroid mass Current Visit: Yes Status: Acute Assessment and plan: November 01. There was a partially calcified 3.9 x 3 x 4.5 cm right thyroid nodule. Nonemergent follow-up thyroid ultrasound can be done as outpatient. (6) CKD (chronic kidney disease) stage 3, GFR 30-59 ml/min Current Visit: Yes Status: Chronic Assessment and plan: Continue to hold losartan/HCTZ, Aldactone, and Lasix. Recheck labs in a.m. (7) Macrocytosis Current Visit: Yes Status: Acute Assessment and plan: November 01. TSH suppressed as per above. B12 and folate levels pending. (8) Hyperlipidemia Current Visit: No Status: Chronic Assessment and plan: November 01. Lipid profile showed cholesterol 124, LDL 70, HDL 39, and total/HDL ratio of 3.2. Qualifiers: Hyperlipidemia type: mixed hyperlipidemia Qualified Code(s): E78.2 - Mixed hyperlipidemia (9) Nausea & vomiting Current Visit: Yes Status: Chronic Assessment and plan: November 01. No vomiting reported today. Continues Zofran as needed. Qualifiers: Vomiting type: unspecified Vomiting Intractability: unspecified Qualified Code(s): R11.2 - Nausea with vomiting, unspecified (10) HTN (hypertension) Current Visit: Yes Status: Chronic Assessment and plan: November 01. Blood pressure borderline low despite discontinuation of Aldactone, losartan/HCTZ, and Lasix. Discontinue amlodipine. Qualifiers: Hypertension type: essential hypertension Qualified Code(s): I10 - Essential (primary) hypertension (11) Hyperuricemia Current Visit: Yes Status: Acute Assessment and plan: November 01. Uric acid level elevated at 8.6. Remain off Aldactone, HCTZ, and Lasix. Continue IV fluids and monitor. - Subjective Interval history: November 01. She has no new complaints except she feels dyspneic. - Constitutional Vitals: Temp Pulse Resp BP Pulse Ox 97.6 F 55 18 108/70 98 11/01/18 06:46 11/01/18 06:46 11/01/18 06:46 11/01/18 06:46 11/01/18 06:46 Exam: She is lying in bed and appears in no significant distress. Extremities shows slight decrease in edema. Her affect is overall cheerful. I reviewed her medications and lab results. Internal Medicine: Result - Labs CBC & Chem 7: 11/01/18 06:50 11/01/18 06:50 Labs: Short CBC 11/01/18 Range/Units 06:50 WBC 8.3 D (4.3-11.1) K/mcL Hgb 11.4 L D (11.5-15.4) g/dL Hct 37.3 (35.3-44.9) % Plt Count 94 L (140-400) K/mcL Neutrophils # 6.4 (1.6-8.9) K/mcL BMP 11/01/18 06:50 Sodium 143 Potassium 4.8 Chloride 109 H Carbon Dioxide 29 BUN 43 H Creatinine 1.50 H Glucose 103 Calcium 8.7 Cardiac Enzymes 10/31/18 Range/Units 09:23 Troponin I 0.07 H* (< 0.04) ng/mL Liver Function 11/01/18 Range/Units 06:50 Total Bilirubin 0.7 (0.3-1.0) mg/dL AST 16 (13-39) Units/L ALT 12 (7-52) Units/L Alkaline Phosphatase 63 (34-104) Units/L Albumin 3.0 L (3.5-5.7) g/dL - Impressions Impressions Chest CT 10/31/18 11:54 IMPRESSION: Limited exam due to patient motion artifact during imaging. Large right and small to moderate volume left pleural effusions with background of interstitial and alveolar pulmonary edema, presumably reflective of underlying heart failure given moderate four-chamber cardiomegaly. Query aspiration risk given tracheal secretions and debris-filled/distended esophagus. Unchanged mediastinal lymphadenopathy since 2014, either reactive or reflective of granulomatous disease. Unchanged heterogeneous right thyroid mass. Please see same day dedicated CT neck for details. D/ / 10/31/2018 14:47:54 Griffin Bartlett / earnold Interpreting Provider: Griffin Bartlett Soft Tissue Neck CT 10/31/18 11:54 IMPRESSION: 1. 4.5 cm right thyroid nodule. Nonemergent follow-up thyroid ultrasound is recommended for further evaluation per guidelines below. 2. Right greater than left layering pleural effusions. RECOMMENDATIONS: Managing Incidental Thyroid Nodule Detected at CT or MRI or US 1. Further evaluation by thyroid Ultrasound recommended for these incidental nodules: Patient Age 18 years or less - Nodule of any size Patient Age 19-34 years old - Nodule 1 cm in size or greater Patient Age 35 years or more - Nodule 1.5 cm in size or greater 2. Follow up thyroid ultrasound also recommend in these scenarios - Solitary nodule with high risk imaging features (locally invasive nodule or suspicious lymph nodes) - Heterogeneous, enlarged thyroid gland. - Increased uptake on PET 3. NO further imaging is recommended in the following scenarios - Any nodule not meeting above criteria. - Those patients with limited life expectancy or significant co-morbidities. Note: These recommendations do not apply to pts. w/ increased risk for thyroid cancer or pts. with symptomatic thyroid disease. Recommendations for f/u of Incidental Thyroid Nodules (ITN) found on CT, MR, NM and Extrathyroidal US are based upon the ACR white paper and Mitchell 3-tiered system for managing ITNs: J Am Clementine Radiol. 2015 Dec;12(2): 143-50 D/ / Bert Reddy / Bert Reddy Interpreting Provider: Bert Reddy Consult Discharge Plan - Plan Referrals: NONE,PCP [Primary Care Provider] - 1 week
[2018-11-01 10:57] LABS: Estimated Average Glucose 108 mg/dl; Hemoglobin A1C 5.4 %
[2018-11-01 11:04] LABS: Folate 11.5 ng/mL (3.0-16.0)
[2018-11-01 11:44] LABS: Vitamin B12 > 1500 pg/mL (250-1100)
[2018-11-01] MEDS: D5% in Water 1,000 ML IVC SCH (12:00)
[2018-11-02] MEDS ORDERED: Aspirin 81 MG TAB.CHEW PO ONE (04:42)
[2018-11-02] MEDS: D5% in Water 1,000 ML IVC SCH ×2 (04:51→15:17)
[2018-11-02 05:25] LABS: Basophils % 0.4 %; Eosinophils # 0.1 K/mcL (0.0-0.6); Hematocrit 38.7 % (35.3-44.9); Hemoglobin 11.3 g/dL (11.5-15.4); Immature Granulocytes % 0.3 % (0-4); Lymphocytes # 0.8 K/mcL (0.6-4.6); Lymphocytes % 11.4 %; Mean Corpuscular HGB Conc 29.2 g/dL (31.6-35.5); Mean Corpuscular Hemoglobin 31.2 pg (28.0-33.3); Mean Corpuscular Volume 106.9 fL (83.0-100.0); Mean Platelet Volume 12.7 fL (9.4-12.4); Monocytes # 0.7 K/mcL (0.0-1.3); Monocytes % 9.7 %; Neutrophils # 5.4 K/mcL (1.6-8.9); Red Blood Count 3.62 M/mcL (3.82-4.97); Red Cell Distribution Width 13.9 % (11.5-14.5); Segmented Neutrophils % 77.2 %
[2018-11-02 05:47] LABS: Calcium 8.6 mg/dL (8.6-10.3); Potassium 4.7 mEq/L (3.5-5.1)
[2018-11-02 05:55] LABS: Platelet Count 94 K/mcL (140-400)
[2018-11-02] MEDS: Ascorbic Acid 500 MG TABLET PO SCH (08:06)
[2018-11-02] MEDS: Gabapentin 300 MG CAPSULE PO SCH ×2 (08:07→22:06)
[2018-11-02] MEDS: Tobramycin/Dex Opth DROPS 2.5 ML BOTTLE LEFT EYE SCH ×2 (10:53→17:42)
[2018-11-02] MEDS: Tobramycin/Dex Opth DROPS 2.5 ML BOTTLE RIGHT EYE SCH ×2 (10:54→17:42)
[2018-11-02 11:32] LABS: ABG Base Excess 1 mEq/L (-2 to 3); ABG HCO3 32 mEq/L (21-27); ABG Oxygen Saturation 96 % (95-98); ABG PCO2 79 mmHg (35-45); ABG PH 7.21 pH Units (7.32-7.45); ABG PO2 100 mmHg (85-104); ABG TCO2 34 mEq/L (20-26)
[2018-11-02] MEDS ORDERED: Tobramycin/Dex Opth DROPS 2.5 ML BOTTLE RIGHT EYE SCH (13:00)
[2018-11-02] MEDS ORDERED: *HR* Atropine Sulfate 1 MG/10 ML SYRINGE IVP ONE (13:28)
[2018-11-02 13:51] LABS: ABG Base Excess 2 mEq/L (-2 to 3); ABG HCO3 30 mEq/L (21-27); ABG Oxygen Saturation 93 % (95-98); ABG PCO2 62 mmHg (35-45); ABG PH 7.28 pH Units (7.32-7.45); ABG PO2 77 mmHg (85-104); ABG TCO2 31 mEq/L (20-26); Blood Gas Respiration Rate 12
--- NOTE | 2018-11-02 14:28 | Internal Med Progress Note ---
Date of Encounter: 11/02/18 Time of Encounter: 14:20 - Assessment and plan (1) CHF exacerbation Current Visit: Yes Status: Acute Assessment and plan: November 01. Echocardiogram ordered November 02. Echocardiogram showed LVEF of 55-60%. Interventricular septum and posterior wall thickness measurements were 1.40 and 1.10 cm respectively. LAE at 4.50 cm. There was moderate MR, qjcs-qo-sxihkele TR, and mild to moderate PI. The estimated RVSP was elevated at 44 mmHg. BN peptide significantly improved at 968. Add Imdur but discontinue Tenormin because of bradycardia. Qualifiers: Heart failure type: unspecified Qualified Code(s): I50.9 - Heart failure, unspecified (2) Elevated troponin Current Visit: Yes Status: Acute Assessment and plan: November 01. Suspect troponin leak from demand ischemia. (3) Diabetes mellitus Current Visit: No Status: Chronic Assessment and plan: November 01. Hemoglobin A1c pending November 02. Hemoglobin A1c satisfactory 5.4%. DM 2 appears diet-controlled. Qualifiers: Diabetes mellitus type: type 2 Diabetes mellitus complication status: without complication Qualified Code(s): E11.9 - Type 2 diabetes mellitus without complications (4) Weight loss Current Visit: Yes Status: Acute Assessment and plan: November 01. Chest CT showed bilateral effusions with mediastinal lymphadenopathy unchanged since 2014. TSH was suppressed at 0.138. (5) Thyroid mass Current Visit: Yes Status: Acute Assessment and plan: November 01. There was a partially calcified 3.9 x 3 x 4.5 cm right thyroid nodule. Nonemergent follow-up thyroid ultrasound can be done as outpatient. (6) CKD (chronic kidney disease) stage 3, GFR 30-59 ml/min Current Visit: Yes Status: Chronic Assessment and plan: November 01. Continue to hold losartan/HCTZ, Aldactone, and Lasix. Recheck lab s in a.m. November 02. Azotemia worse with BUN and creatinine 52 and 1.97 respectively. Increase IV fluid rate. (7) Macrocytosis Current Visit: Yes Status: Acute Assessment and plan: November 01. TSH suppressed as per above. B12 and folate levels pending. November 02. B12 level> 1500 and folate 11.5. (8) Hyperlipidemia Current Visit: No Status: Chronic Assessment and plan: November 01. Lipid profile showed cholesterol 124, LDL 70, HDL 39, and total/HDL ratio of 3.2. Qualifiers: Hyperlipidemia type: mixed hyperlipidemia Qualified Code(s): E78.2 - Mixed hyperlipidemia (9) Nausea & vomiting Current Visit: Yes Status: Chronic Assessment and plan: November 01. No vomiting reported today. Continues Zofran as needed. Qualifiers: Vomiting type: unspecified Vomiting Intractability: unspecified Qualified Code(s): R11.2 - Nausea with vomiting, unspecified (10) HTN (hypertension) Current Visit: Yes Status: Chronic Assessment and plan: November 01. Blood pressure borderline low despite discontinuation of Aldactone, losartan/HCTZ, and Lasix. November 02. Blood pressure remains borderline low. Discontinue atenolol. Qualifiers: Hypertension type: essential hypertension Qualified Code(s): I10 - Esse ntial (primary) hypertension (11) Hyperuricemia Current Visit: Yes Status: Acute Assessment and plan: November 01. Uric acid level elevated at 8.6. Remain off Aldactone, HCTZ, and Lasix. Continue IV fluids and monitor. (12) Acute respiratory insufficiency Current Visit: Yes Status: Acute Assessment and plan: November 02 ABG earlier today showed pH 7.21. She was placed on BiPAP with follow-up ABG now showing pH improved to 7.28. Continue to monitor. - Subjective Interval history: November 01. She has no new complaints except she feels dyspneic. November 02. She developed decreased responsiveness with lethargy during the night. When I saw her earlier today she was lethargic but did attempt to awaken and answer questions. - Constitutional Vitals: Temp Pulse Resp BP Pulse Ox 98.7 F 71 16 122/73 96 11/02/18 05:43 11/02/18 08:04 11/02/18 05:43 11/02/18 08:04 11/02/18 05:43 Exam: She is lying in bed and was lethargic but did awaken somewhat to voice and light touch. She has bilateral mucopurulent conjunctivitis. Heart was regular without murmurs gallops or ectopics. I reviewed her medications, lab results, echocardiogram report, and head CT report. Internal Medicine: Result - Labs CBC & Chem 7: 11/02/18 04:30 11/02/18 04:30 Labs: Short CBC 11/02/18 Range/Units 04:30 WBC 6.9 (4.3-11.1) K/mcL Hgb 11.3 L (11.5-15.4) g/dL Hct 38.7 (35.3-44.9) % Plt Count 94 L (140-400) K/mcL Neutrophils # 5.4 (1.6-8.9) K/mcL BMP 11/02/18 04:30 Sodium 139 Potassium 4.7 Chloride 107 Carbon Dioxide 27 BUN 52 H Creatinine 1.97 H Glucose 160 H Calcium 8.6 - ABG Interpretation ABG results: ABG ABG pH 7.28 pH Units (7.32-7.45) L 11/02/18 13:47 ABG pCO2 62 mmHg (35-45) H 11/02/18 13:47 ABG pO2 77 mmHg (85-104) L 11/02/18 13:47 ABG O2 Saturation 93 % (95-98) L 11/02/18 13:47 - Impressions Impressions Chest X-Ray 11/02/18 10:04 IMPRESSION: Moderate bilateral pleural effusions and associated airspace opacities have progressed since the prior examination. D/ / Santino Perry MD / Santino Perry MD Interpreting Provider: Santino Perry MD Head CT 11/02/18 10:05 IMPRESSION: No acute intracranial abnormality. Cerebral atrophy and chronic small vessel ischemic changes in the white matter. No change. D/ / Girish Del Real MD / Girish Del Real MD Interpreting Provider: Girish Del Real MD Consult Discharge Plan - Plan Referrals: NONE,PCP [Primary Care Provider] - 1 week
[2018-11-02] MEDS ORDERED: Nitroglycerin 0.4 MG PATCH.TD24 TD ONE (14:41)
[2018-11-02 19:10] LABS: ABG Base Excess 1 mEq/L (-2 to 3); ABG HCO3 26 mEq/L (21-27); ABG Oxygen Saturation 98 % (95-98); ABG PCO2 41 mmHg (35-45); ABG PH 7.41 pH Units (7.32-7.45); ABG PO2 110 mmHg (85-104); ABG TCO2 27 mEq/L (20-26); Blood Gas Respiration Rate 12
[2018-11-03] MEDS: Tobramycin/Dex Opth DROPS 2.5 ML BOTTLE RIGHT EYE SCH ×3 (02:15→18:00)
[2018-11-03] MEDS: Tobramycin/Dex Opth DROPS 2.5 ML BOTTLE LEFT EYE SCH ×3 (02:15→18:00)
[2018-11-03] MEDS: D5% in Water 1,000 ML IVC SCH ×2 (06:24→19:42)
[2018-11-03 07:32] LABS: Basophils % 0.4 %; Eosinophils # 0.1 K/mcL (0.0-0.6); Eosinophils % 1.4 %; Hematocrit 37.2 % (35.3-44.9); Hemoglobin 11.5 g/dL (11.5-15.4); Immature Granulocytes % 0.4 % (0-4); Lymphocytes # 0.8 K/mcL (0.6-4.6); Lymphocytes % 11.1 %; Mean Corpuscular HGB Conc 30.9 g/dL (31.6-35.5); Mean Corpuscular Hemoglobin 32.2 pg (28.0-33.3); Mean Corpuscular Volume 104.2 fL (83.0-100.0); Monocytes # 0.8 K/mcL (0.0-1.3); Neutrophils # 5.2 K/mcL (1.6-8.9); Red Blood Count 3.57 M/mcL (3.82-4.97); Red Cell Distribution Width 13.5 % (11.5-14.5); Segmented Neutrophils % 74.7 %
[2018-11-03 07:37] LABS: Platelet Count 90 K/mcL (140-400)
[2018-11-03 08:02] LABS: Calcium 8.5 mg/dL (8.6-10.3); Potassium 4.6 mEq/L (3.5-5.1)
--- NOTE | 2018-11-03 09:34 | Internal Med Progress Note ---
Date of Encounter: 11/03/18 Time of Encounter: 09:25 - Assessment and plan (1) CHF exacerbation Current Visit: Yes Status: Acute Assessment and plan: November 01. Echocardiogram ordered November 02. Echocardiogram showed LVEF of 55-60%. Interventricular septum and posterior wall thickness measurements were 1.40 and 1.10 cm respectively. LAE at 4.50 cm. There was moderate MR, rglj-cx-amteyppb TR, and mild to moderate PI. The estimated RVSP was elevated at 44 mmHg. BN peptide significantly improved at 968. Add Imdur but discontinue Tenormin because of bradycardia. November 03. BN peptide slightly lower at 939. Continue Imdur and add Lanoxin. Remain off beta kelsey, diuretics, and ACEI/ARB due to azotemia and hypotension. Qualifiers: Heart failure type: unspecified Qualified Code(s): I50.9 - Heart failure, unspecified (2) Elevated troponin Current Visit: Yes Status: Acute Assessment and plan: November 01. Suspect troponin leak from demand ischemia. (3) Diabetes mellitus Current Visit: No Status: Chronic Assessment and plan: November 01. Hemoglobin A1c pending November 02. Hemoglobin A1c satisfactory 5.4%. DM 2 appears diet-controlled. Qualifiers: Diabetes mellitus type: type 2 Diabetes mellitus complication status: without complication Qualified Code(s): E11.9 - Type 2 diabetes mellitus without complications (4) Weight loss Current Visit: Yes Status: Acute Assessment and plan: November 01. Chest CT showed bilateral effusions with mediastinal lymphadenopathy unchanged since 2014. TSH was suppressed at 0.138. (5) Thyroid mass Current Visit: Yes Status: Acute Assessment and plan: November 01. There was a partially calcified 3.9 x 3 x 4.5 cm right thyroid nod ule. Nonemergent follow-up thyroid ultrasound can be done as outpatient. (6) CKD (chronic kidney disease) stage 3, GFR 30-59 ml/min Current Visit: Yes Status: Chronic Assessment and plan: November 01. Continue to hold losartan/HCTZ, Aldactone, and Lasix. Recheck labs in a.m. November 02. Azotemia worse with BUN and creatinine 52 and 1.97 respectively. Increase IV fluid rate. November 03. Creatinine slightly decreased at 1.92. Continue to monitor. (7) Macrocytosis Current Visit: Yes Status: Acute Assessment and plan: Олег 14. TSH suppressed as per above. B12 and folate levels pending. November 02. B12 level> 1500 and folate 11.5. (8) Hyperlipidemia Current Visit: No Status: Chronic Assessment and plan: November 01. Lipid profile showed cholesterol 124, LDL 70, HDL 39, and total/HDL ratio of 3.2. Qualifiers: Hyperlipidemia type: mixed hyperlipidemia Qualified Code(s): E78.2 - Mixed hyperlipidemia (9) Nausea & vomiting Current Visit: Yes Status: Chronic Assessment and plan: November 01. No vomiting reported today. Continues Zofran as needed. Qualifiers: Vomiting type: unspecified Vomiting Intractability: unspecified Qualified Code(s): R11.2 - Nausea with vomiting, unspecified (10) HTN (hypertension) Current Visit: Yes Status: Chronic Assessment and plan: November 01. Blood pressure borderline low despite discontinuation of Aldactone, losartan/HCTZ, and Lasix. November 02. Blood pressure remains borderline low. Discontinue atenolol. Qualifiers: Hypertension type: essential hypertension Qualified Code(s): I10 - Essential (primary) hypertension (11) Hyperuricemia Current Visit: Yes Status: Acute Assessment and plan: November 01. Uric acid level elevated at 8.6. Remain off Aldactone, HCTZ, and Lasix. Continue IV fluids and monitor. (12) Acute respiratory insufficiency Current Visit: Yes Status: Acute Assessment and plan: November 02 ABG earlier today showed pH 7.21. She was placed on BiPAP with follow-up ABG now showing pH improved to 7.28. Continue to monitor. November 03. ABG further improved on follow-up last evening. Continue BiPAP as needed. - Subjective Interval history: November 01. She has no new complaints except she feels dyspneic. November 02. She developed decreased responsiveness with lethargy during the night. When I saw her earlier today she was lethargic but did attempt to awaken and answer questions. November 03. She has no new complaints but states she "hurts all over". - Constitutional Vitals: Temp Pulse Resp BP Pulse Ox 97.6 F 55 12 107/65 95 11/03/18 08:50 11/03/18 08:50 11/03/18 08:50 11/03/18 08:50 11/03/18 08:50 Exam: She is lying in bed and appears slightly dyspneic. She is able to answer a few simple questions. Her eyes show dried secretions present. Extremities show 0- trace edema of the lower legs bilaterally. I reviewed her medications, vitals, and lab results. Internal Medicine: Result - Labs CBC & Chem 7: 11/03/18 07:22 11/03/18 07:22 Labs: Short CBC 11/03/18 Range/Units 07:22 WBC 6.9 (4.3-11.1) K/mcL Hgb 11.5 (11.5-15.4) g/dL Hct 37.2 (35.3-44.9) % Plt Count 90 L (140-400) K/mcL Neutrophils # 5.2 (1.6-8.9) K/mcL BMP 11/03/18 07:22 Sodium 132 L Potassium 4.6 Chloride 99 Carbon Dioxide 25 BUN 57 H Creatinine 1.92 H Glucose 186 H Calcium 8.5 L - ABG Interpretation ABG results: ABG ABG pH 7.41 pH Units (7.32-7.45) D 11/02/18 19:07 ABG pCO2 41 mmHg (35-45) D 11/02/18 19:07 ABG pO2 110 mmHg (85-104) H 11/02/18 19:07 ABG O2 Saturation 98 % (95-98) 11/02/18 19:07 - Impressions Impressions Chest X-Ray 11/02/18 10:04 IMPRESSION: Moderate bilateral pleural effusions and associated airspace opacities have progressed since the prior examination. D/ / 11/02/2018 14:53:57 Santino Perry MD / bcarosa Interpreting Provider: Santino Perry MD Head CT 11/02/18 10:05 IMPRESSION: No acute intracranial abnormality. Cerebral atrophy and chronic small vessel ischemic changes in the white matter. No change. D/ / Girish Del Real MD / Girish Del Real MD Interpreting Provider: Girish Del Real MD Consult Discharge Plan - Plan Referrals: NONE,PCP [Primary Care Provider] - 1 week
[2018-11-03] MEDS: Gabapentin 300 MG CAPSULE PO SCH (10:42)
[2018-11-03] MEDS: Isosorbide MONOnitrate (24 HR) 30 MG TAB.ER.24H PO SCH (10:48)
[2018-11-03] MEDS: Ascorbic Acid 500 MG TABLET PO SCH (10:48)
[2018-11-03] MEDS: *HR* Digoxin 0.125 MG TABLET PO SCH (10:49)
[2018-11-03 16:14] LABS: ABG Base Excess -2 mEq/L (-2 to 3); ABG HCO3 26 mEq/L (21-27); ABG Oxygen Saturation 92 % (95-98); ABG PCO2 55 mmHg (35-45); ABG PH 7.28 pH Units (7.32-7.45); ABG PO2 72 mmHg (85-104); ABG TCO2 27 mEq/L (20-26)
[2018-11-04] MEDS: Tobramycin/Dex Opth DROPS 2.5 ML BOTTLE RIGHT EYE SCH ×2 (02:30→11:19)
[2018-11-04] MEDS: Tobramycin/Dex Opth DROPS 2.5 ML BOTTLE LEFT EYE SCH ×2 (02:30→11:19)
[2018-11-04] MEDS: D5% in Water 1,000 ML IVC SCH ×2 (05:52→08:55)
[2018-11-04 05:55] LABS: Basophils % 0.4 %; Eosinophils % 0.3 %; Hematocrit 33.4 % (35.3-44.9); Hemoglobin 10.7 g/dL (11.5-15.4); Immature Granulocytes % 0.3 % (0-4); Lymphocytes # 0.7 K/mcL (0.6-4.6); Lymphocytes % 8.6 %; Mean Corpuscular Hemoglobin 32.2 pg (28.0-33.3); Mean Corpuscular Volume 100.6 fL (83.0-100.0); Mean Platelet Volume 13.3 fL (9.4-12.4); Monocytes # 0.9 K/mcL (0.0-1.3); Monocytes % 11.3 %; Neutrophils # 6.3 K/mcL (1.6-8.9); Red Blood Count 3.32 M/mcL (3.82-4.97); Segmented Neutrophils % 79.1 %
[2018-11-04 05:58] LABS: Platelet Count 87 K/mcL (140-400)
[2018-11-04 06:09] LABS: Calcium 8.4 mg/dL (8.6-10.3); Potassium 4.4 mEq/L (3.5-5.1)
[2018-11-04 06:27] VITALS: BP 128/72
[2018-11-04] MEDS: Ascorbic Acid 500 MG TABLET PO SCH (08:55)
[2018-11-04] MEDS: Isosorbide MONOnitrate (24 HR) 30 MG TAB.ER.24H PO SCH (08:55)
[2018-11-04] MEDS: *HR* Digoxin 0.125 MG TABLET PO SCH (08:55)
[2018-11-04] MEDS ORDERED: D5% in Water 1,000 ML IVC SCH (10:00)
[2018-11-04 10:27] LABS: ABG Base Excess -1 mEq/L (-2 to 3); ABG HCO3 24 mEq/L (21-27); ABG Oxygen Saturation 93 % (95-98); ABG PCO2 41 mmHg (35-45); ABG PH 7.38 pH Units (7.32-7.45); ABG PO2 67 mmHg (85-104); ABG TCO2 25 mEq/L (20-26)
--- NOTE | 2018-11-04 12:29 | Discharge Summary ---
Date of Encounter: 11/04/18 Time of Encounter: 10:00 - Discharge Diagnosis (1) CHF exacerbation Priority: Primary Status: Acute Qualifiers: Heart failure type: unspecified Qualified Code(s): I50.9 - Heart failure, unspecified (2) Elevated troponin Priority: Secondary Status: Acute (3) Diabetes mellitus Priority: Secondary Status: Chronic Qualifiers: Diabetes mellitus type: type 2 Diabetes mellitus complication status: without complication Qualified Code(s): E11.9 - Type 2 diabetes mellitus without complications (4) Weight loss Priority: Secondary Status: Acute (5) Thyroid mass Priority: Secondary Status: Acute (6) CKD (chronic kidney disease) stage 3, GFR 30-59 ml/min Priority: Secondary Status: Chronic (7) Macrocytosis Priority: Secondary Status: Acute (8) Hyperlipidemia Priority: Secondary Status: Chronic Qualifiers: Hyperlipidemia type: mixed hyperlipidemia Qualified Code(s): E78.2 - Mixed hyperlipidemia (9) Nausea & vomiting Priority: Secondary Status: Chronic Qualifiers: Vomiting type: unspecified Vomiting Intractability: unspecified Qualified Code(s): R11.2 - Nausea with vomiting, unspecified (10) HTN (hypertension) Priority: Secondary Status: Chronic Qualifiers: Hypertension type: essential hypertension Qualified Code(s): I10 - Essential (primary) hypertension (11) Hyperuricemia Priority: Secondary Status: Acute (12) Acute respiratory insufficiency Priority: Secondary Status: Acute Hospital course: Ms. Chaidez is a 82 year old female who came to emergency room stating she had lorene ma in her feet onset approximately one week earlier. She denies significant dyspnea or chest pain. When symptoms did not improve she came to emergency room. She was evaluated and was found to have slight elevation of troponin. Chest x-ray showed bilateral pleural effusions. She was admitted to [facility] floor for ongoing care needs. Initial orders were written by the emergency room physician. I saw her on October 31 and performed a history and physical. Echocardiogram was ordered and showed LVEF of 55-60%. Moderate LV diastolic dysfunction was reported. Interventricular septum and posterior wall thickness measurements were 1.40 and 1.10 cm respectively. There was LAE at 4.50 cm. There was moderate MR, [id number] TR, and mild to moderate PI. The estimated RVSP was elevated at 44 mmHg. She was started on isosorbide and Lanoxin. Diuretics were discontinued on the second hospital day because of worsening azotemia. Beta kelsey was initially continued but heart rate decreased to 42/m so this was discontinued also. The ER physician ordered Aldactone, Hyzaar, Lasix, atenolol, and Norvasc based on her home medication list. After conferring with family the day after adm ission it was learned the patient had not been taking these medications at home. She developed acute kidney injury with BUN and creatinine rising to 52 and 1.97 respectively by November 02. Gentle IV hydration was given with D5W and creatinine decreased to 1.63 by day of transfer. Her BN peptide initially showed improvement with decrease to 939 but tiara significantly to 2292 by day of transfer. Follow-up chest x-ray on 11/02/2018 showed worsening bilateral pleural effusions. She developed acute respiratory insufficiency the second hospital day and required BiPAP intermittently to maintain satisfactory ventilation with oxygenation. CT of neck showed a partially calcified 3.9 x 3 x 4.5 similar right thyroid nodule with mild displacement the trachea to the left. On November 04 I spoke with the family about her lack of overall progress. I recommended she be transferred for further evaluation and intervention. They agreed to transfer to [facility]. - Time Spent with Patient Total time spent providing and/or coordinating discharge services: - Discharge Medications Home Medications: Amlodipine [Norvasc] 10 mg PO DAILY 10/29/15 [History] Ascorbic Acid [Vitamin C] 250 mg PO DAILY 10/29/15 [History] Atenolol [Tenormin] 100 mg PO DAILY 10/29/15 [History] Atorvastatin Calcium [Lipitor] 80 mg PO DAILY 10/29/15 [History] Diazepam [Valium] 5 mg PO TID PRN 10/29/15 [History] Gabapentin [Neurontin] 300 mg PO TID 10/29/15 [History] Losartan/Hydrochlorothiazide [Hyzaar 100-25 Tablet] 1 each PO DAILY 10/29/15 [History] Omeprazole [PriLOSEC] 20 mg PO DAILY 10/29/15 [History] OxyCODONE/APAP 10/325 [Percocet 10/325] 0.5 each PO Q6HR PRN 10/29/15 [History] Spironolactone [Aldactone] 50 mg PO DAILY 10/29/15 [History] Furosemide [Lasix] 20 mg PO DAILY PRN 04/20/18 [History] Allergies/Adverse Reactions: Allergy/AdvReac Type Severity Reaction Status Date / Time duloxetine [From Cymbalta] AdvReac Confusion Verified 10/30/18 14:23 escitalopram [From Lexapro] AdvReac Hallucinati Verified 10/30/18 14:23 ng sertraline [From Zoloft] AdvReac Confusion Verified 10/30/18 14:23 Date of admission: 10/31/18 12:00 Primary care physician: PCP NONE Consults: 11/01/18 09:57 Consult to Occupational Therapy [CONS] Routine Comment: Evaluate, develop and implement POC Reason for Consult: Weakness Does patient have active BEDREST order?: No Is patient medically & hemodynamically stable?: Yes Patient assessed for mobility or mobilized this visit?: Yes Consult to Physical Therapy [CONS] Routine Comment: Evaluate, develop and implement POC Reason for Consult: Weakness Does patient have active BEDREST order?: No Is patient medically & hemodynamically stable?: Yes Patient assessed for mobility or mobilized this visit?: Yes - Constitutional Vitals: Temp Pulse Resp BP Pulse Ox 97.5 F L 53 16 128/72 96 11/04/18 06:00 11/04/18 06:00 11/04/18 06:00 11/04/18 06:00 11/04/18 06:00 - Patient Status Disposition: Transfer Other Condition: Good - Discharge Instructions
== END 2018-11-04 13:00 | disposition other institution (70) | DRG 292 ==
LOC: EMEROOPIK 14:23 → INPPIK 14:23
PROVIDERS: ADMIT Internal Medicine; ATTEND Internal Medicine